=== PATIENT | female | born 1940 | race Caucasian/White ===

== ENCOUNTER 2023-08-30 20:46 | Emergency (ER) | payer OTHER ==
--- OUTSIDE RECORDS SUMMARY | 2023-08-30 20:48 | XMS REPORT | Continuity of Care Document ---
Author Name Unknown Address [address] [place] [address]. [address] thconnect Address [address] [facility] [address] [place] [address] Care Team Providers Care Pelts Skinner Name Role Phone Unavailable Unavailable Unavailable
[2023-08-30] MEDS ORDERED: ACETAMINOPHEN 325 MG TABLET ONE (21:15)
[2023-08-30] MEDS ORDERED: METOPROLOL TAR 25 MG TAB ONE (21:15)
[2023-08-30] MEDS ORDERED: METOPROLOL TARTRATE 5 MG/5 ML INJ IV ONE (21:15)
[2023-08-30] MEDS ORDERED: MAGNESIUM SULFATE 1 gm IVPB 1 GM/100 ML BAG IV ONE (21:16)
[2023-08-30] MEDS ORDERED: NA CHLORIDE 0.9% 1,000 ML ONE (21:16)
[2023-08-30] MEDS ORDERED: NA CHLORIDE 0.9% 500 ML ONE (21:16)
[2023-08-30 21:21] LABS: Absolute Basophils 0.1 K/uL (0-0.5); Absolute Eosinophils 0.3 K/uL (0-0.5); Absolute Lymphocytes (CBC) 2.9 K/uL (0.7-4.9); Absolute Monocytes 0.8 K/uL (0.1-1.3); Absolute Neutrophil 4.3 K/uL (1.8-8.0); Basophils % 1.1 % (0-1.3); Eosinophils % 3.4 % (0-4.4); Hematocrit 40.1 % (36.0-45.0); Hemoglobin 13.3 g/dL (12.0-15.0); Lymphocytes % 34.5 % (15.3-44.8); MCH 30.6 pg (27.0-35.0); MCHC 33.3 g/dL (32.0-36.0); MPV 9.2 fL (7.6-11.3); Monocytes % 9.9 % (3.3-12.3); Neutrophils % 51.1 % (41.7-73.7); Platelets 244 thou/uL (152-406); RBC Red Blood Cell Count 4.35 M/uL (3.86-4.86); Red Cell Distribution Width 13.4 % (12.1-15.2)
[2023-08-30 21:27] LABS: PT Prothrombin Time 14.1 SECONDS (9.5-12.5); Protime INR 1.29
[2023-08-30 21:49] LABS: ALT/SGPT 24 U/L (13-56); AST/SGOT 19 U/L (15-37); Albumin 3.5 g/dL (3.4-5.0); Alkaline Phosphatase 109 U/L (45-117); Anion Gap 8.7 mEq/L (5.0-15.0); BUN Blood Urea Nitrogen 20 mg/dL (7-18); Bicarbonate 25 mEq/L (21-32); Bilirubin Total 0.3 mg/dL (0.2-1.0); Globulin 3.6 g/dL (2.3-3.5); Glomerular Filtration Rate 59 ml/min (=/>90); Glucose Level 174 mg/dL (74-106); Magnesium 2.1 mg/dL (1.6-2.4); NT PRO-BNP 1023 pg/mL (<450); Potassium 3.7 mEq/L (3.5-5.1); Protein, Total 7.1 g/dL (6.4-8.2); Sodium Level 143 mEq/L (136-145); Troponin High Sensitivity 7.5 pg/mL (<58.9)
[2023-08-30 21:52] LABS: Bilirubin Direct < 0.2 mg/dL (0-0.2); Bilirubin Indirect, Calculated 0.1 mg/dL (0.2-0.8)
--- NOTE | 2023-08-30 22:00 | RAD REPORT ---
EXAM DESCRIPTION: CT - Head Brain Wo Cont - 08/30/2023 9:37 pm CLINICAL HISTORY: Headache COMPARISON: none TECHNIQUE: Computed axial tomography of the head was obtained. IV contrast was not requested. All CT scans are performed using dose optimization technique as appropriate and may include automated exposure control or mA/KV adjustment according to patient size. FINDINGS: An intracranial bleed is not seen The ventricles are normal in caliber No significant hypodense areas within the brain visualized No extra-axial fluid collection is noted. Fluid within the sinuses/ mastoids is not seen IMPRESSION: No acute intracranial abnormality is seen If patient's symptoms persist MRI of the brain would be recommended
--- NOTE | 2023-08-30 22:00 | RAD REPORT ---
EXAM DESCRIPTION: [facility]vidio Single View08/30/2023 9:44 pm CLINICAL HISTORY: Chest pain COMPARISON: 2016 FINDINGS: The lungs appear clear of acute infiltrate. The heart is moderately enlarged IMPRESSION: No acute abnormalities displayed
[2023-08-30] MEDS ORDERED: APIXABAN 5 MG TABLET ONE (22:43)
--- NOTE | 2023-08-31 00:10 | ER ---
Nurse's Notes [facility] Name: Carrie Varela Age: 83 yrs Sex: Female : 1940 Arrival Date: 08/30/2023 Time: 20:46 Bed 4 Private MD: Manuelito Garcia V Diagnosis: Persistent atrial fibrillation-with RVR;half-way (current) use of anticoagulants;Chest pain, unspecified Presentation: 08/29 21:00 Chief complaint: Patient states: "heart flutters" that began this evening. Pt reports a ss hx of afib. Chest pain 03/26. Coronavirus screen: Client denies travel out of the [place] in the last 14 days. Ebola Screen: Patient denies exposure to infectious person. Patient denies travel to an Ebola-affected area in the 21 days before illness onset. Initial Sepsis Screen: Does the patient meet any 2 criteria? HR > 90 bpm. No. Patient's initial sepsis screen is negative. Does the patient have a suspected source of infection? No. Patient's initial sepsis screen is negative. Risk Assessment: Do you want to hurt yourself or someone else? Patient reports no desire to harm self or others. Onset of symptoms was August 30, 2023. 21:00 Method Of Arrival: Ambulatory ss 21:00 Acuity: IGLESIA 2 ss Historical: - Allergies: 21:01 No Known Allergies; ss - PMHx: 21:01 Hypertension; skin cancer; Atrial fibrillation; high cholesterol; ss - PSHx: 21:01 Hysterectomy; Cholecystectomy; ss - Immunization history:: Adult Immunizations unknown. - Infectious Disease History:: Denies. - Social history:: Smoking status: Patient denies any tobacco usage or history of. Screenin:51 [facility] ED Fall Risk Assessment (Adult) History of falling in the last 3 months, bm8 including since admission No falls in past 3 months (0 pts). [facility] ED Fall Risk Assessment (Adult) Confusion or Disorientation No (0 pts) Intoxicated or Sedated No (0 pts) Impaired Gait No (0 pts) Mobility Assist Device Used No (0 pt) Altered Elimination No (0 pt) Score/Fall Risk Level 0 - 2 = Low Risk Oriented to surroundings, Maintained a safe environment, Educated pt \\T\\ family on fall prevention, incl call for assistance when getting out of bed. Abuse screen: Denies threats or abuse. Nutritional screening: No deficits noted. Tuberculosis screening: No symptoms or risk factors identified. Assessment: 21:51 Reassessment: Patient appears in no apparent distress at this time. Patient and/or bm8 family updated on plan of care and expected duration. Pain level reassessed. Patient is alert, oriented x 3, equal unlabored respirations, skin warm/dry/pink. General: Appears in no apparent distress. comfortable, Behavior is calm, cooperative, appropriate for age. Pain: Complains of pain in chest Pain does not radiate. Pain currently is 3 out of 10 on a pain scale. Pain began 3 hours ago. Neuro: No deficits noted. Level of Consciousness is awake, alert, obeys commands, Oriented to person, place, time, situation, Appropriate for age. Cardiovascular: No deficits noted. Heart tones S1 S2 present Capillary refill < 3 seconds Patient's skin is warm and dry. Rhythm is atrial fibrillation with rapid ventricular response. Respiratory: Airway is patent Respiratory effort is even, unlabored, Respiratory pattern is regular, symmetrical, Breath sounds are clear bilaterally. GI: No deficits noted. No signs and/or symptoms were reported involving the gastrointestinal system. : No deficits noted. No signs and/or symptoms were reported regarding the genitourinary system. EENT: No deficits noted. No signs and/or symptoms were reported regarding the EENT system. Derm: No deficits noted. No signs and/or symptoms reported regarding the dermatologic system. Musculoskeletal: No deficits noted. No signs and/or symptoms reported regarding the musculoskeletal system. 22:43 Reassessment: No changes from previously documented assessment. tm6 22:47 Reassessment: Patient appears in no apparent distress at this time. Patient and/or bm8 family updated on plan of care and expected duration. Pain level reassessed. Patient is alert, oriented x 3, equal unlabored respirations, skin warm/dry/pink. Patient denies pain at this time. Patient states feeling better. Patient states symptoms have improved. Cardiovascular: Denies chest pain, lightheadedness, shortness of breath, Heart tones S1 S2 present Capillary refill < 3 seconds Patient's skin is warm and dry. Rhythm is sinus rhythm. Respiratory: Airway is patent Trachea midline Respiratory effort is even, unlabored, Respiratory pattern is regular, symmetrical, Breath sounds are clear bilaterally. 23:43 Reassessment: Patient appears in no apparent distress at this time. No changes from bm8 previously documented assessment. Patient and/or family updated on plan of care and expected duration. Pain level reassessed. Patient is alert, oriented x 3, equal unlabored respirations, skin warm/dry/pink. awaiting lab results for diagnosis Patient denies pain at this time. Patient states feeling better. Patient states symptoms have improved. Vital Signs: 21:00 BP 174 / 105; Pulse 129; Resp 19; Temp 98(O); Pulse Ox 97% on R/A; Weight 63.5 kg; ss Height 5 ft. 5 in. ; Pain 1/10; 22:00 BP 130 / 68; Pulse 64; Resp 16; Pulse Ox 94% on R/A; Pain 0/10; tm6 23:43 BP 131 / 71; Pulse 52; Resp 19; Temp 98.2; Pulse Ox 97% on R/A; Pain 0/10; bm8 21:00 Body Mass Index 23.30 (63.50 kg, 165.1 cm) ss 21:00 Pain Scale: Adult ss 22:00 Pain Scale: Adult tm6 23:43 Pain Scale: Adult bm8 Ezel Coma Score: 22:47 Eye Response: spontaneous(4). Motor Response: obeys commands(6). Verbal Response: bm8 oriented(5). Total: 15. 23:43 Eye Response: spontaneous(4). Motor Response: obeys commands(6). Verbal Response: bm8 oriented(5). Total: 15. ED Course: 20:47 Patient arrived in ED. am2 20:47 Manuelito Garcia MD is Private Physician. am2 21:01 Triage completed. ss 21:01 Arm band placed on right wrist. ss 21:05 Manan Poon MD is Attending Physician. jojo 21:11 Brandon Olivares, RN is Primary Nurse. bm8 21:39 CT Head Brain wo Cont In Process Unspecified. EDMS 21:46 XRAY Chest (1 view) In Process Unspecified. EDMS 21:51 Patient has correct armband on for positive identification. Placed in gown. Call light bm8 in reach. Side rails up X2. Adult w/ patient. Provided Education on:. Client placed on continuous cardiac and pulse oximetry monitoring. NIBP monitoring applied. electric power line examiner on. Pulse ox on. NIBP on. Door closed. Noise minimized. Warm blanket given. Verbal reassurance given. Head of bed elevated. 21:51 No provider procedures requiring assistance completed. Initial lab(s) drawn, by ut bmTrina sent to lab. EKG done, by ED staff, reviewed by Manan Poon MD. Inserted saline lock: 20 gauge in right forearm, using aseptic technique. Blood collected. O2 via O2 not needed at this time. 23:43 repeat trop drawn and sent. bm8 08/30 00:09 Manuelito Garcia MD is Referral Physician. jojo 00:09 Billy Prince MD is Referral Physician. jojo 00:11 IV discontinued, intact, bleeding controlled, No redness/swelling at site. Pressure bm8 dressing applied. Administered Medications: 08/29 21:49 Discontinued: ns 0.9% 1000 ml IV at 125 ml/hr continuous jojo 21:49 Discontinued: ns 0.9% 500 ml IV at bolus once jojo 21:32 Drug: NS 0.9% IV 500 ml IV at bolus once Route: IV; Rate: bolus; Site: right forearm; bm8 21:32 Drug: Metoprolol PO 25 mg PO once Route: PO; bm8 22:49 Follow up: Response: No adverse reaction bm8 22:49 Follow up: Response: No adverse reaction bm8 21:32 Drug: Metoprolol IVP 5 mg IVP once; Hold for SBP <100 or HR <60. Route: IVP; Site: [facility]; 22:49 Follow up: Response: No adverse reaction bm8 21:32 Drug: Magnesium Sulfate IVPB 1 grams IVPB once over 1 hrs Route: IVPB; Infused Over: 1 bm8 hrs; Site: right forearm; 22:48 Follow up: Response: No adverse reaction; IV Status: Completed infusion; IV Intake: bm8 100ml 21:32 Drug: Acetaminophen PO 650 mg PO once Route: PO; bm8 22:48 Follow up: Response: No adverse reaction bm8 21:33 Drug: NS 0.9% IV 1000 ml IV at 125 ml/hr continuous Route: IV; Rate: 125 ml/hr; Site: [facility] right forearm; 22:49 Follow up: Response: No adverse reaction; IV Status: Completed infusion; IV Intake: bm8 250ml 21:51 Not Given (Duplicate Order): ns 0.9% 1000 ml IV at 75 ml/hr continuous bm8 22:43 Not Given (Duplicate Order): metoprolol5 mg IVP once; Hold for SBP <100 or HR <60. jojo 22:46 Drug: Metoprolol IVP 2.5 mg IVP once; Hold for SBP <100 or HR <60. Route: IVP; Site: 8 right forearm; 22:48 Follow up: Response: No adverse reaction bm8 22:47 Drug: Eliquis PO 5 mg PO once Route: PO; bm8 22:48 Follow up: Response: No adverse reaction bm8 Medication: 21:51 VIS not applicable for this client. bm8 Intake: 22:48 IV: 100ml; Total: 100ml. bm8 22:49 IV: 250ml; Total: 350ml. bm8 Outcome: 08/30 00:09 Discharge ordered by . jojo 00:11 Discharged to home ambulatory, bm8 00:11 Condition: stable 00:11 Discharge instructions given to patient, family, Instructed on discharge instructions, follow up and referral plans. safety practices, Demonstrated understanding of instructions, follow-up care, medications, 00:21 Patient left the ED. bm8 Signatures: Dispatcher [employer] EDManan Barajas MD MD cha Blanchard, Shelby, RN RN Meagan Leigh Tawney, RN RN 6 Brandon Olivares RN RN bm8
--- NOTE | 2023-08-31 00:10 | EDPHYS ---
Physician Documentation [facility] Name: Carrie Varela Age: 83 yrs Sex: Female : 1940 Arrival Date: 08/30/2023 Time: 20:46 Bed 4 Private MD: Manuelito Garcia V ED Physician Manan Poon HPI: 08/29 21:12 This 83 yrs old Female presents to ER via Ambulatory with complaints of Chest jojo Pain, afib, heart fluttering. 21:12 The patient or guardian reports chest pain that is located primarily in the substernal jojo area. Onset: just prior to arrival. The pain does not radiate. Associated signs and symptoms: Pertinent positives: headache. Historical: - Allergies: 21:01 No Known Allergies; ss - PMHx: 21:01 Hypertension; skin cancer; Atrial fibrillation; high cholesterol; ss - PSHx: 21:01 Hysterectomy; Cholecystectomy; ss - Immunization history:: Adult Immunizations unknown. - Infectious Disease History:: Denies. - Social history:: Smoking status: Patient denies any tobacco usage or history of. ROS: 21:14 Constitutional: Negative for fever, chills, and weight loss, Eyes: Negative for injury, jojo pain, redness, and discharge, ENT: Negative for injury, pain, and discharge, Neck: Negative for injury, pain, and swelling, Respiratory: Negative for shortness of breath, cough, wheezing, and pleuritic chest pain, Abdomen/GI: Negative for abdominal pain, nausea, vomiting, diarrhea, and constipation, Back: Negative for injury and pain, : Negative for injury, bleeding, discharge, and swelling, MS/Extremity: Negative for injury and deformity, Skin: Negative for injury, rash, and discoloration, Neuro: Negative for headache, weakness, numbness, tingling, and seizure, Psych: Negative for depression, anxiety, suicide ideation, homicidal ideation, and hallucinations, Allergy/Immunology: Negative for hives, rash, and allergies, Endocrine: Negative for neck swelling, polydipsia, polyuria, polyphagia, and marked weight changes, Hematologic/Lymphatic: Negative for swollen nodes, abnormal bleeding, and unusual bruising, 21:14 Cardiovascular: Positive for chest pain, Exam: 21:14 Constitutional: This is a well developed, well nourished patient who is awake, alert, jojo and in no acute distress. Head/Face: Normocephalic, atraumatic. Eyes: Pupils equal round and reactive to light, extra-ocular motions intact. Lids and lashes normal. Conjunctiva and sclera are non-icteric and not injected. Cornea within normal limits. Periorbital areas with no swelling, redness, or edema. ENT: Nares patent. No nasal discharge, no septal abnormalities noted. Tympanic membranes are normal and external auditory canals are clear. Oropharynx with no redness, swelling, or masses, exudates, or evidence of obstruction, uvula midline. Mucous membranes moist. Neck: Trachea midline, no thyromegaly or masses palpated, and no cervical lymphadenopathy. Supple, full range of motion without nuchal rigidity, or vertebral point tenderness. No Meningismus. Chest/axilla: Normal chest wall appearance and motion. Nontender with no deformity. No lesions are appreciated. Respiratory: Lungs have equal breath sounds bilaterally, clear to auscultation and percussion. No rales, rhonchi or wheezes noted. No increased work of breathing, no retractions or nasal flaring. Abdomen/GI: Soft, non-tender, with normal bowel sounds. No distension or tympany. No guarding or rebound. No evidence of tenderness throughout. Back: No spinal tenderness. No costovertebral tenderness. Full range of motion. Female : Normal external genitalia. Skin: Warm, dry with normal turgor. Normal color with no rashes, no lesions, and no evidence of cellulitis. MS/ Extremity: Pulses equal, no cyanosis. Neurovascular intact. Full, normal range of motion. Neuro: Awake and alert, GCS 15, oriented to person, place, time, and situation. Cranial nerves II-XII grossly intact. Motor strength 5/5 in all extremities. Sensory grossly intact. Cerebellar exam normal. Normal gait. Psych: Awake, alert, with orientation to person, place and time. Behavior, mood, and affect are within normal limits. 21:14 Cardiovascular: Rate: tachycardic, actual rate is 129 bpm, Rhythm: irregularly irregular, Pulses: Pulses are 4+ in bilateral radial, brachial, femoral, popliteal, posterior tibial and and dorsalis pedis arteries.. Heart sounds: normal, Edema: is not appreciated, JVD: is not appreciated, 21:14 ECG was reviewed by the Attending Physician. 22:44 ECG was reviewed by the Attending Physician. jojo Vital Signs: 21:00 BP 174 / 105; Pulse 129; Resp 19; Temp 98(O); Pulse Ox 97% on R/A; Weight 63.5 kg; ss Height 5 ft. 5 in. ; Pain 1/10; 22:00 BP 130 / 68; Pulse 64; Resp 16; Pulse Ox 94% on R/A; Pain 0/10; tm6 23:43 BP 131 / 71; Pulse 52; Resp 19; Temp 98.2; Pulse Ox 97% on R/A; Pain 0/10; bm8 21:00 Body Mass Index 23.30 (63.50 kg, 165.1 cm) ss 21:00 Pain Scale: Adult ss 22:00 Pain Scale: Adult tm6 23:43 Pain Scale: Adult bm8 Randolph Coma Score: 22:47 Eye Response: spontaneous(4). Motor Response: obeys commands(6). Verbal Response: bm8 oriented(5). Total: 15. 23:43 Eye Response: spontaneous(4). Motor Response: obeys commands(6). Verbal Response: bm8 oriented(5). Total: 15. MDM: 21:05 Patient medically screened. jojo 21:16 Differential diagnosis: abnormal EKG, acute myocardial infarction, acute pericarditis, jojo anxiety, coronary artery disease chest wall pain, congestive heart failure costochondritis, esophagitis, pancreatitis, pleurisy, pneumonia, pulmonary embolus, stable angina, thoracic aortic disection, unstable angina. HEART Score: History: Moderately Suspicious (1), ECG: Non specific repolarization disturbance / LBTB / PM (1), Age: > or = 65 years (2), Risk Factors: > or = 3 Risk factors for atherosclerotic disease (2), [Hypercholesterolemia] [Hypertension] [+ Family HX] Troponin: < or = 1 x Normal Limit (0). The patient was not given aspirin in the Emergency Department. Not indicated due to patient's past medical history. MISSY Risk Score: 1 - patient's age is greater or equal to 65 years, 1 - Three or more CAD risk factors, TOTAL SCORE = 2. Data reviewed: vital signs, nurses notes, lab test result(s), EKG, radiologic studies, CT scan, plain films. Consideration of Admission/Observation Patient was admitted/placed on observation. Escalation of care including admission/observation considered. I considered the following discharge prescriptions or medication management in the emergency department Medications were administered in the Emergency Department. See MAR. Independent interpretation of the following test(s) in the Emergency Department EKG: See my EKG interpretation above. Test considered but Not performed: Ultrasound no 2 d echo. Historians other than the Patient: Family Member: children. Care significantly affected by the following chronic conditions: Hypertension, a fib, high chlesterol. Counseling: I had a detailed discussion with the patient and/or guardian regarding the historical points, exam findings, and any diagnostic results supporting the discharge/admit diagnosis, the presence of at least one elevated blood pressure reading (>120/80) during this emergency department visit, lab results, radiology results. 08/29 21:07 Order name: Basic Metabolic Panel; Complete Time: 22:02 [facility] 08/29 21:07 Order name: CBC with Diff; Complete Time: 22:02 [facility] 08/29 21:07 Order name: LFT's; Complete Time: 22:02 08/29 21:07 Order name: Magnesium; Complete Time: 22:02 08/29 21:07 Order name: NT PRO-BNP; Complete Time: 22:02 08/29 21:07 Order name: PT-INR; Complete Time: 22:02 08/29 21:07 Order name: Troponin HS; Complete Time: 22:02 [facility] 08/29 21:07 Order name: TSH; Complete Time: 22:02 08/29 22:10 Order name: Troponin High Sensitivity: midnight; Complete Time: 00:09 08/29 21:07 Order name: XRAY Chest (1 view); Complete Time: 22:02 08/29 21:14 Order name: CT Head Brain wo Cont; Complete Time: 22:02 08/29 21:20 Order name: EKG; Complete Time: 21:20 08/29 21:07 Order name: Cardiac monitoring; Complete Time: 21:33 [facility] 08/29 21:07 Order name: EKG - Nurse/Tech; Complete Time: 21:33 [facility] 08/29 21:07 Order name: IV Saline Lock; Complete Time: 21:33 [facility] 08/29 21:07 Order name: Labs collected and sent; Complete Time: 21:33 08/29 21: Order name: O2 Per Protocol; Complete Time: jojo 08/29 21: Order name: O2 Sat Monitoring; Complete Time: jojo 08/29 21:20 Order name: EKG - Nurse/Tech: when converted; Complete Time: : jojo EC:14 Rate is 138 beats/min. Rhythm is irregularly irregular. QRS [place] is Normal. [place] interval jojo is normal. QRS interval is normal. QT interval is normal. No Q waves. T waves are Normal. No ST changes noted. Clinical impression: Atrial Fibrillation and No evidence of ischemia. Interpreted by me. Reviewed by me. 22:44 Rate is 62 beats/min. Rhythm is regular. QRS [place] is Normal. [place] interval is normal. QRS jojo interval is normal. QT interval is normal. No Q waves. T waves are Normal. No ST changes noted. Clinical impression: NSR w/ Non-specific ST/T Changes and No evidence of ischemia. Interpreted by me. Reviewed by me. Administered Medications: 21:49 Discontinued: ns 0.9% 1000 ml IV at 125 ml/hr continuous jojo 21:49 Discontinued: ns 0.9% 500 ml IV at bolus once jojo 21:32 Drug: NS 0.9% IV 500 ml IV at bolus once Route: IV; Rate: bolus; Site: right forearm; bm8 21:32 Drug: Metoprolol PO 25 mg PO once Route: PO; bm8 22:49 Follow up: Response: No adverse reaction bm8 22:49 Follow up: Response: No adverse reaction bm8 21:32 Drug: Metoprolol IVP 5 mg IVP once; Hold for SBP <100 or HR <60. Route: IVP; Site: bm8 right forearm; 22:49 Follow up: Response: No adverse reaction bm8 21:32 Drug: Magnesium Sulfate IVPB 1 grams IVPB once over 1 hrs Route: IVPB; Infused Over: 1 bm8 hrs; Site: right forearm; 22:48 Follow up: Response: No adverse reaction; IV Status: Completed infusion; IV Intake: bm8 100ml 21:32 Drug: Acetaminophen PO 650 mg PO once Route: PO; bm8 22:48 Follow up: Response: No adverse reaction bm8 21:33 Drug: NS 0.9% IV 1000 ml IV at 125 ml/hr continuous Route: IV; Rate: 125 ml/hr; Site: [facility]; 22:49 Follow up: Response: No adverse reaction; IV Status: Completed infusion; IV Intake: bm8 250ml 21:51 Not Given (Duplicate Order): ns 0.9% 1000 ml IV at 75 ml/hr continuous bm8 22:43 Not Given (Duplicate Order): metoprolol5 mg IVP once; Hold for SBP <100 or HR <60. jojo 22:46 Drug: Metoprolol IVP 2.5 mg IVP once; Hold for SBP <100 or HR <60. 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 jojo - Chest pain, unspecified jojo Followup: jojo - With: Manuelito Garcia MD - When: 1 - 2 days - Reason: Recheck today's complaints, Continuance of care, Re-evaluation by your physician Followup: jojo - With: Billy Prince MD - When: 2 - 3 days - Reason: Recheck today's complaints, Re-evaluation by your physician Discharge Instructions: - Discharge Summary Sheet jojo - Atrial Fibrillation jojo - Nonspecific Chest Pain, Adult jojo - Nonspecific Chest Pain, Adult, [id number] jojo Forms: - Medication Reconciliation Form jojo - Antibiotic Education jojo - Prescription Opioid Use jojo - Patient Portal Instructions jojo - Leadership Thank You Letter [facility] Prescriptions: - Lopressor 50 mg Oral Tablet - take 1 tablet ORAL route every 12 hours; 30 tablet; Refills: 0, Product jojo Selection Permitted Signatures: Dispatcher [employer] Manan Raphael MD MD cha Blanchard, Shelby, RN RN Brandon Olivares RN RN bm8 Corrections: (The following items were deleted from the chart) 21:07 21:07 Chest Single View+[id number].[email or web address].[email or web address] ordered. EDMS ZAPIEN
[2023-08-31 00:39] VITALS: BP 131/71; TEMP 98.2; O2SAT 97
--- NOTE | 2023-09-01 14:56 | EKG ---
Test Date: 2023-08-30 Test Time: 22:37:26 Client Director: JODIE MEASUREMENT RESULTS: Intervals: Rate: 62 CT: 144 QRSD: 96 QT: 440 QTc: 446 [place]: P: 71 CT: 144 QRS: 51 T: -2 INTERPRETIVE STATEMENTS: Normal sinus rhythm with sinus arrhythmia Cannot rule out Anterior infarct, age undetermined Abnormal ECG Compared to ECG 08/30/2023 20:55:32 Atrial fibrillation no longer present Ventricular premature complex(es) no longer present ST (T wave) deviation no longer present Myocardial infarct finding still present Electronically Signed On 09-01-23 14:51:47 CDT by Billy Prince
--- NOTE | 2023-09-01 14:57 | EKG ---
Test Date: 2023-08-30 Test Time: 20:55:32 Hvac/R Instructor: JODIE MEASUREMENT RESULTS: Intervals: Rate: 138 [place]: QRSD: 86 QT: 298 QTc: 451 [place]: P: [place]: QRS: 64 T: 145 INTERPRETIVE STATEMENTS: Atrial fibrillation with rapid ventricular response with premature ventricular or aberrantly conducted complexes Possible Anterior infarct, age undetermined Marked ST abnormality, possible inferolateral subendocardial injury Abnormal ECG Compared to ECG 02/02/2016 03:06:43 Ventricular premature complex(es) now present Myocardial infarct finding now present Sinus tachycardia no longer present ST (T wave) deviation still present Electronically Signed On 09-01-23 14:51:53 CDT by Billy Prince
== END 2023-08-31 00:21 | disposition home or self-care (01) ==
LOC: ER 20:46
DX: I48.19 Other persistent atrial fibrillation (principal); Z79.01 Long term (current) use of anticoagulants; I10 Essential (primary) hypertension
CPT/HCPCS: 96365; 93005 ×2; 85025; 80048; 36415; 83735; 85610; 80076; 84443; 84484 ×2; 83880; 70450; 71045; 96375; 99285; J3475; J7040; J7030